=== PATIENT | female | born 1960 | race Caucasian/White ===

== ENCOUNTER 2017-02-19 09:44 | Inpatient (IN) | payer MEDICARE ==
[~2017-02-19] VITALS: Ht 154.9 cm; Wt 53.6 kg
[2017-02-19] MEDS ORDERED: LORTAB 7.5-3251 EACH PO (10:46)
[2017-02-19] MEDS ORDERED: CARTIA XT180 MG PO (10:47)
[2017-02-19] MEDS ORDERED: PROTONIX 40 MG40 M1 PO (10:47)
[2017-02-19] MEDS ORDERED: ZESTRIL5 MG PO (10:47)
[2017-02-19] MEDS ORDERED: BUSPAR 10MG10 MG PO (10:48)
[2017-02-19] MEDS ORDERED: KLONOPIN TAB 00.5 MG PO (10:48)
[2017-02-19] MEDS ORDERED: SPIRIVA18 MCG INH (10:49)
[2017-02-19] MEDS ORDERED: VENTOLIN/PROVE0.5 ML INH (10:50)
[2017-02-19] MEDS ORDERED: ECOTRIN81 MG PO (10:50)
[2017-02-19] MEDS ORDERED: CALCIUM 600 +1 EAC3 PO (10:52)
[2017-02-19] MEDS ORDERED: DILTIAZEM 24HR180 M1 PO (10:52)
[2017-02-19] MEDS ORDERED: DULERA 200 MCG8.8 GM INH (10:53)
[2017-02-19] MEDS ORDERED: SIMVASTATIN20 MG PO (10:55)
[2017-02-19] MEDS ORDERED: METOCLOPRAMIDE10 MG PO (10:55)
[2017-02-19] MEDS ORDERED: THEO-DUR 200 M200 MG PO (10:56)
[2017-02-19 13:38] LABS: BUN/CREATININE RATIO 26 (0-10)
[2017-02-19 13:58] LABS: RED BLOOD COUNT 2.61 M/UL (4.00-5.10); WHITE BLOOD COUNT 9.8 K/UL (4.5-11.0)
[2017-02-19 14:06] LABS: HEMOGLOBIN 7.7 gm/dl (12.3-15.3)
[2017-02-19 14:42] LABS: THEOPHYLLINE < 0.8 ug/mL (10.0-20.0)
[2017-02-20 03:40] LABS: WHITE BLOOD COUNT 7.4 K/UL (4.5-11.0)
[2017-02-20 03:45] LABS: HEMOGLOBIN 10.1 gm/dl (12.3-15.3); RED BLOOD COUNT 3.44 M/UL (4.00-5.10)
[2017-02-20 04:05] LABS: BUN/CREATININE RATIO 40 (0-10)
[2017-02-20 15:33] LABS: BUN/CREATININE RATIO 60 (0-10)
[2017-02-20 19:42] LABS: BUN/CREATININE RATIO 67 (0-10)
[2017-02-21 04:15] LABS: HEMOGLOBIN 10.3 gm/dl (12.3-15.3); RED BLOOD COUNT 3.49 M/UL (4.00-5.10); WHITE BLOOD COUNT 6.7 K/UL (4.5-11.0)
[2017-02-21 04:20] LABS: BUN/CREATININE RATIO 73 (0-10)
[2017-02-21 16:19] LABS: BUN/CREATININE RATIO 83 (0-10)
[2017-02-22 03:26] LABS: HEMOGLOBIN 10.1 gm/dl (12.3-15.3); RED BLOOD COUNT 3.4 M/UL (4.00-5.10); WHITE BLOOD COUNT 5.4 K/UL (4.5-11.0)
[2017-02-22 03:49] LABS: BUN/CREATININE RATIO 90 (0-10)
[2017-02-23 03:52] LABS: HEMOGLOBIN 9.8 gm/dl (12.3-15.3); RED BLOOD COUNT 3.38 M/UL (4.00-5.10); WHITE BLOOD COUNT 5.3 K/UL (4.5-11.0)
[2017-02-23 04:07] LABS: BUN/CREATININE RATIO 90 (0-10)
[2017-02-23 14:20] LABS: BUN/CREATININE RATIO 77 (0-10)
[2017-02-24 04:29] LABS: HEMOGLOBIN 10.6 gm/dl (12.3-15.3); RED BLOOD COUNT 3.61 M/UL (4.00-5.10); WHITE BLOOD COUNT 7.5 K/UL (4.5-11.0)
[2017-02-24 04:54] LABS: BUN/CREATININE RATIO 63 (0-10)
[2017-02-25 04:58] LABS: HEMOGLOBIN 10.7 gm/dl (12.3-15.3); RED BLOOD COUNT 3.64 M/UL (4.00-5.10); WHITE BLOOD COUNT 8.9 K/UL (4.5-11.0)
[2017-02-25 05:21] LABS: BUN/CREATININE RATIO 85 (0-10)
[2017-02-26 03:38] LABS: HEMOGLOBIN 9.9 gm/dl (12.3-15.3); RED BLOOD COUNT 3.38 M/UL (4.00-5.10); WHITE BLOOD COUNT 9.8 K/UL (4.5-11.0)
[2017-02-26 04:00] LABS: BUN/CREATININE RATIO 110 (0-10)
[2017-02-27 05:47] LABS: BUN/CREATININE RATIO 85 (0-10)
[2017-02-28] MEDS ORDERED: DIAMOX 250 MG250 MG PO (14:32)
[2017-02-28] MEDS ORDERED: VITAMIN B-121000 MC3 PO (14:33)
[2017-02-28] MEDS ORDERED: ENSURE HIGH PR237 ML PO (14:34)
[2017-02-28] MEDS ORDERED: CARDIZEM CD120 MG PO (14:34)
[2017-02-28] MEDS ORDERED: FOLIC ACID 1 MG1 MG PO (14:35)
[2017-02-28] MEDS ORDERED: MULTI-DAY VITA1 EACH PO (14:35)
[2017-02-28] MEDS ORDERED: VITAMIN D400 UNI2 PO (14:36)
== END 2017-02-28 19:00 | disposition home health service (06) | DRG 208 ==
LOC: M/S 11:33 → CCU 11:33 → M/S 02-26 23:15
PROVIDERS: Hospitalist; Internal Medicine; Internal Medicine Pulmonary Disease; ADMIT Internal Medicine
PROC: 0BH17EZ Insertion of Endotracheal Airway into Trachea, Via Natural or Artificial Opening (ICD-10-PCS; principal; 2017-02-19)
PROC: 5A1945Z Respiratory Ventilation, 24-96 Consecutive Hours (ICD-10-PCS; principal; 2017-02-19)
DX: J96.21 Acute and chronic respiratory failure with hypoxia (principal); L89.154 Pressure ulcer of sacral region, stage 4; J44.1 Chronic obstructive pulmonary disease with (acute) exacerbation; E87.1 Hypo-osmolality and hyponatremia; E44.0 Moderate protein-calorie malnutrition; Z68.1 Body mass index [BMI] 19.9 or less, adult; J96.22 Acute and chronic respiratory failure with hypercapnia; I35.0 Nonrheumatic aortic (valve) stenosis; D64.9 Anemia, unspecified; F41.9 Anxiety disorder, unspecified; E86.0 Dehydration; K21.9 Gastro-esophageal reflux disease without esophagitis; R34 Anuria and oliguria; I10 Essential (primary) hypertension; E83.52 Hypercalcemia; Z88.0 Allergy status to penicillin; Z88.2 Allergy status to sulfonamides; Z88.1 Allergy status to other antibiotic agents; R00.1 Bradycardia, unspecified; T41.295A Adverse effect of other general anesthetics, initial encounter; E87.70 Fluid overload, unspecified
CPT/HCPCS: ECHO; 36415; 36600; 71010; 74000; 80048; 80053; 80198; 80202; 80307; 81001; 82150; 82330; 82533; 82550; 82553; 82607; 82728; 82746; 82803; 82962; 83036; 83540; 83550; 83735; 83880; 84100; 84132; 84134; 84439; 84443; 84484; 85025; 85027; 85610; 85730; 86140; 86850; 86900; 86901; 86920; 87040; 87070; 87086; 87205; 93005; 93306; 94002; 94003; 94640; 94660; 94664; 94667; 97530; 97535; C9113; J1120; J1265; J1335; J1650; J1720; J1940; J2060; J3370; J7030; J7040; J7050; J7070; P9016